=== PATIENT | female | born 1960 | race American Indian/Alaskan Native ===

== ENCOUNTER 2017-02-01 17:36 | Inpatient (IN) | payer OTHER ==
[~2017-02-01] VITALS: Ht 157.5 cm; Wt 60.7 kg
[~2017-02-01 17:36] MED LIST: ASPI81TA52 PO; BECL7.3A7 INH; FEXO-124 PO; FURO-149 PO; HYDR20OI TP; IPRA3AMP IH; KEN0.1O TP; MAGN500C16 PO; METO25TA6 PO; PANT40TA4 PO; PAT0.1OS OP; POTA10TA19 PO; TEMA15CA5 PO; WOOL454C TP
[2017-02-01] MEDS ORDERED: normal saline 1000ML IV soln IVB ONE ×2 (18:00→20:45)
[2017-02-01 18:01] LABS: BASOPHILS # (AUTO) 0.1 X10'3 (0-0.2); BASOPHILS % (AUTO) 0.6 % (0-1); EOSINOPHILS % (AUTO) 0.1 % (0-6); HEMOGLOBIN 12.8 g/dl (12.0-16.0); LYMPHOCYTES # (AUTO) 1.5 X10'3 (1.1-4.8); LYMPHOCYTES % (AUTO) 11.5 % (21-51); MEAN CORPUSCULAR HEMOGLOBIN 31.5 PG (27.0-31.0); MEAN CORPUSCULAR HGB CONC 33.7 % (33.0-36.5); MEAN CORPUSCULAR VOLUME 93.4 FL (78-98); MEAN PLATELET VOLUME 8.4 FL (7.4-10.4); MONOCYTES # (AUTO) 1.6 X10'3 (0-0.9); MONOCYTES % (AUTO) 12.4 % (2-12); NEUTROPHILS # (AUTO) 9.6 X10'3 (1.8-7.7); NEUTROPHILS % (AUTO) 75.4 % (42-75); PLATELET COUNT 173 X10'3 (140-440); RED BLOOD COUNT 4.07 X10'6 (4.20-5.60); RED CELL DISTRIBUTION WIDTH 13.7 % (11.5-14.5); WHITE BLOOD COUNT 12.7 X10'3 (4.5-11.0)
[2017-02-01 18:15] LABS: INR 1.4 INR; PARTIAL THROMBOPLASTIN TIME 27 SECONDS (22-32); PROTHROMBIN TIME 14.8 SECONDS (9.0-12.0)
[2017-02-01 18:30] LABS: ALANINE AMINOTRANSFERASE 35 U/L (12-78); ALBUMIN 2.8 G/DL (3.4-5.0); ALBUMIN/GLOBULIN RATIO 0.6 (1.1-1.5); ALKALINE PHOSPHATASE 140 IU/L (46-116); ANION GAP 17 (8-16); ASPARTATE AMINO TRANSFERASE 79 U/L (10-37); BILIRUBIN,TOTAL 4.8 MG/DL (0.1-1.0); BLOOD UREA NITROGEN 14 MG/DL (7-18); CALCIUM 7.8 MG/DL (8.5-10.1); CHLORIDE 85 MMOL/L (99-107); CREATININE 1.76 MG/DL (0.40-0.90); GLUCOSE 265 MG/DL (70-104); PHOSPHORUS 1.8 MG/DL (2.3-4.5); SODIUM 129 MMOL/L (135-145); TOTAL CARBON DIOXIDE 27.1 MMOL/L (24-32); TOTAL PROTEIN 7.7 G/DL (6.4-8.2); eGFR 30 ML/MIN
[2017-02-01 18:36] LABS: ETHANOL < 0.010 GM/DL (0.0-0.010); MAGNESIUM 0.9 MG/DL (1.5-2.4); POTASSIUM 1.9 MMOL/L (3.5-5.1)
[2017-02-01] MEDS ORDERED: potassium Cl 20 mEq SR tablet PO ONE (18:40)
[2017-02-01] MEDS ORDERED: magnesium 4gm in 100ml NS 100 ML IV ONE (18:40)
[2017-02-01] MEDS ORDERED: potassium phosphate inj 30 MMOL in normal saline 500ml IV soln 490 ML IV ONE (18:45)
[2017-02-01] MEDS ORDERED: potassium Cl oral solution 20 MEQ/15 ML PO ONE (19:20)
[2017-02-01] MEDS: potassium 10mEq/100ml NS w/LIDOcaine (10mg/bag) IV SCH ×2 (19:48→21:45)
[2017-02-01 20:51] LABS: CLARITY,URINE Cloudy (Clear); COLOR,URINE Dark Yellow (Yellow); GLUCOSE, URINE Negative (Neg); KETONES,URINE Negative (Neg); LEUKOCYTE ESTERASE ,URINE Moderate (Neg); NITRITES, URINE Positive (Neg); OCCULT BLOOD,URINE Negative (Neg); PH,URINE 5.5 (4.8-8.0); PROTEIN,URINE Negative (Neg)
[2017-02-01] MEDS ORDERED: POTA10TA19 PO (20:56)
[2017-02-01 20:58] LABS: UA COLLECTION TYPE CLN CATCH MIDSTREAM
[2017-02-01 21:04] LABS: BACTERIA,URINE 4+ /HPF (Neg); RBC,URINE NONE SEEN /HPF (0-2); SQUAMOUS EPITHELIAL CELL,UR FEW /LPF (FEW)
[2017-02-01 21:08] LABS: URINE AMPHETAMINE SCREEN NEGATIVE (Neg); URINE BARBITUATE SCREEN NEGATIVE (Neg); URINE BENZODIAZEPINES SCREEN POSITIVE (Neg); URINE CANNABINOID SCREEN NEGATIVE (Neg); URINE COCAINE SCREEN NEGATIVE (Neg); URINE METHADONE SCREEN NEGATIVE (Neg); URINE OPIATE SCREEN NEGATIVE (Neg); URINE PHENCYCLIDINE SCREEN NEGATIVE (Neg)
[2017-02-01] MEDS ORDERED: mag hydrox/Alum hydrox/simeth 30ml oral suspension PO PRN (22:55)
[2017-02-01] MEDS ORDERED: acetaminophen 325mg tablet PO PRN ×2 (22:55)
[2017-02-01] MEDS ORDERED: magnesium hydroxide 30ml (MOM) UD suspension PO PRN (22:55)
[2017-02-01] MEDS ORDERED: ondansetron/PF 4mg/2ml inj IV PRN (22:55)
[2017-02-01] MEDS ORDERED: potassium Cl 40MEQ/NS 500ml 500 ML IV PRN ×2 (23:05)
[2017-02-01] MEDS ORDERED: potassium Cl 20 mEq SR tablet PO PRN ×2 (23:05)
[2017-02-02 04:34] LABS: HEMOGLOBIN A1C 5.7 % (4.5-6.2)
[2017-02-02 07:13] LABS: BASOPHILS # (AUTO) 0.1 X10'3 (0-0.2); EOSINOPHILS # (AUTO) 0.1 X10'3 (0-0.9); EOSINOPHILS % (AUTO) 0.6 % (0-6); HEMATOCRIT 32.6 % (35.0-45.0); HEMOGLOBIN 10.9 g/dl (12.0-16.0); LYMPHOCYTES # (AUTO) 1.4 X10'3 (1.1-4.8); LYMPHOCYTES % (AUTO) 12.9 % (21-51); MEAN CORPUSCULAR HEMOGLOBIN 31.4 PG (27.0-31.0); MEAN CORPUSCULAR HGB CONC 33.5 % (33.0-36.5); MEAN CORPUSCULAR VOLUME 93.7 FL (78-98); MONOCYTES # (AUTO) 1.7 X10'3 (0-0.9); MONOCYTES % (AUTO) 15.7 % (2-12); NEUTROPHILS # (AUTO) 7.5 X10'3 (1.8-7.7); NEUTROPHILS % (AUTO) 69.8 % (42-75); PLATELET COUNT 148 X10'3 (140-440); RED BLOOD COUNT 3.49 X10'6 (4.20-5.60); RED CELL DISTRIBUTION WIDTH 14.1 % (11.5-14.5); WHITE BLOOD COUNT 10.7 X10'3 (4.5-11.0)
[2017-02-02] MEDS ORDERED: potassium 10mEq/100ml NS w/LIDOcaine (10mg/bag) IV ONE (07:15)
[2017-02-02 07:29] LABS: ALBUMIN 2.2 G/DL (3.4-5.0); ANION GAP 11 (8-16); BLOOD UREA NITROGEN 8 MG/DL (7-18); BUN/CREATININE RATIO 8.3 (6.6-38.0); CALCIUM 7.1 MG/DL (8.5-10.1); CHLORIDE 97 MMOL/L (99-107); CREATININE 0.96 MG/DL (0.40-0.90); GLUCOSE 144 MG/DL (70-104); MAGNESIUM 1.7 MG/DL (1.5-2.4); SODIUM 134 MMOL/L (135-145); TOTAL CARBON DIOXIDE 25.6 MMOL/L (24-32); eGFR 60 ML/MIN
[2017-02-02 07:36] LABS: POTASSIUM 2.3 MMOL/L (3.5-5.1)
[2017-02-02] MEDS ORDERED: AMOX-580 PO (07:51)
[2017-02-02] MEDS ORDERED: METO-384 PO (07:51)
[2017-02-02] MEDS: pantoprazole 40mg Tablet.DR PO SCH (07:53)
[2017-02-02] MEDS: aspirin 81mg tablet.DR PO SCH (07:53)
[2017-02-02] MEDS: metoprolol tartrate 25mg tablet PO SCH ×2 (07:53→20:09)
[2017-02-02] MEDS ORDERED: METO-395 PO (07:56)
[2017-02-02] MEDS ORDERED: metoprolol tartrate 25mg tablet PO SCH (08:00)
[2017-02-02] MEDS ORDERED: furosemide 40mg tablet PO SCH (08:00)
[2017-02-02] MEDS ORDERED: potassium Cl oral solution 20 MEQ/15 ML PO PRN (10:28)
[2017-02-02] MEDS: normal saline 1000ml 1,000 ML IV SCH ×2 (10:44→20:00)
[2017-02-02] MEDS: potassium Cl oral solution 20 MEQ/15 ML PO PRN ×3 (11:18→20:09)
[2017-02-02] MEDS ORDERED: CefTRIAXone 1 gm/50ml D5W ADV 50 ML IV ONE (11:25)
[2017-02-02] MEDS ORDERED: cefTRIAXone 1g/NS 100ml IVPB 100 ML IV ONE (11:31)
[2017-02-02] MEDS: potassium Cl 20mEq in NS 1,000 ML IV SCH ×3 (11:50→22:36)
[2017-02-02 12:08] LABS: POTASSIUM 2.9 MMOL/L (3.5-5.1)
[2017-02-02 12:15] LABS: MAGNESIUM 1.5 MG/DL (1.5-2.4)
[2017-02-02] MEDS ORDERED: magnesium oxide 400mg tablet PO ONE (12:40)
[2017-02-02 13:40] VITALS: BP 117/70
[2017-02-02] MEDS: ibuprofen 200mg tablet PO PRN (14:01)
[2017-02-02 15:00] VITALS: BP 97/66
[2017-02-02] MEDS: metroNIDAZOLE-Flagyl 500mg/NS 100 ML IV SCH ×2 (16:32→23:52)
[2017-02-02 19:00] VITALS: BP 91/63
[2017-02-02] MEDS ORDERED: magnesium 4gm in 100ml NS 100 ML IV PRN (19:50)
[2017-02-02] MEDS ORDERED: magnesium 2GM in 50ml NS 50 ML IV PRN (19:50)
[2017-02-02] MEDS: magnesium Cl slow-release 64mg tablet PO PRN (20:09)
[2017-02-02 23:00] VITALS: BP 103/67
[2017-02-03 00:24] LABS: MAGNESIUM 1.3 MG/DL (1.5-2.4); POTASSIUM 3.7 MMOL/L (3.5-5.1)
[2017-02-03 03:00] VITALS: BP 108/69
[2017-02-03 06:44] LABS: ALANINE AMINOTRANSFERASE 32 U/L (12-78); ALBUMIN 1.9 G/DL (3.4-5.0); ALBUMIN/GLOBULIN RATIO 0.5 (1.1-1.5); ALKALINE PHOSPHATASE 119 IU/L (46-116); ANION GAP 11 (8-16); ASPARTATE AMINO TRANSFERASE 68 U/L (10-37); BILIRUBIN,TOTAL 2.7 MG/DL (0.1-1.0); BLOOD UREA NITROGEN 9 MG/DL (7-18); BUN/CREATININE RATIO 9.3 (6.6-38.0); CALCIUM 7.4 MG/DL (8.5-10.1); CHLORIDE 105 MMOL/L (99-107); CREATININE 0.97 MG/DL (0.40-0.90); GLUCOSE 134 MG/DL (70-104); MAGNESIUM 1.2 MG/DL (1.5-2.4); POTASSIUM 3.4 MMOL/L (3.5-5.1); SODIUM 138 MMOL/L (135-145); TOTAL CARBON DIOXIDE 21.9 MMOL/L (24-32); TOTAL PROTEIN 5.5 G/DL (6.4-8.2); eGFR 59 ML/MIN
[2017-02-03 07:00] VITALS: BP 92/62
[2017-02-03] MEDS: metroNIDAZOLE-Flagyl 500mg/NS 100 ML IV SCH ×2 (07:29→16:07)
[2017-02-03] MEDS: aspirin 81mg tablet.DR PO SCH (07:30)
[2017-02-03] MEDS: potassium Cl 20mEq in NS 1,000 ML IV SCH ×2 (07:30→18:36)
[2017-02-03] MEDS: pantoprazole 40mg Tablet.DR PO SCH (07:30)
[2017-02-03] MEDS ORDERED: cefTRIAXone 1g/NS 100ml IVPB 100 ML IV SCH (08:00)
[2017-02-03] MEDS: metoprolol tartrate 25mg tablet PO SCH ×2 (08:00→20:05)
[2017-02-03 11:00] VITALS: BP 92/56
[2017-02-03] MEDS: ibuprofen 200mg tablet PO PRN ×3 (11:00→21:18)
[2017-02-03 14:39] LABS: MAGNESIUM 1.6 MG/DL (1.5-2.4)
[2017-02-03 15:00] VITALS: BP 105/59
[2017-02-03] MEDS ORDERED: naphazoline/pheniramine eye 1 DROP BOTTLE EACHEYE PRN (18:05)
[2017-02-03 19:00] VITALS: BP 114/62
[2017-02-03] MEDS ORDERED: BECLOMETHASONE DIPROPIONATE INH SCH (20:00)
[2017-02-03] MEDS ORDERED: OLOPATADINE HCL OP SCH (20:00)
[2017-02-03] MEDS: temazepam 15mg capsule PO SCH ×2 (20:05→20:09)
[2017-02-03] MEDS: potassium Cl oral solution 20 MEQ/15 ML PO SCH (20:06)
[2017-02-03] MEDS ORDERED: non-formulary drug (Potassium Chloride (Klor-Con) 1 TAB) PO SCH (21:00)
[2017-02-03 22:00] VITALS: BP 95/61
[2017-02-04] MEDS: metroNIDAZOLE-Flagyl 500mg/NS 100 ML IV SCH ×3 (00:13→16:51)
[2017-02-04 02:00] VITALS: BP 95/55
[2017-02-04] MEDS: potassium Cl 20mEq in NS 1,000 ML IV SCH ×3 (03:50→21:30)
[2017-02-04] MEDS: ibuprofen 200mg tablet PO PRN ×2 (04:00→12:07)
[2017-02-04 06:10] LABS: MAGNESIUM 1.3 MG/DL (1.5-2.4)
[2017-02-04 06:35] VITALS: BP 91/57
[2017-02-04] MEDS: metoprolol tartrate 25mg tablet PO SCH ×2 (07:21→20:40)
[2017-02-04] MEDS: pantoprazole 40mg Tablet.DR PO SCH (07:36)
[2017-02-04] MEDS: magnesium Cl slow-release 64mg tablet PO PRN ×2 (07:36→23:05)
[2017-02-04] MEDS: aspirin 81mg tablet.DR PO SCH (07:36)
[2017-02-04] MEDS: magnesium oxide 400mg tablet PO SCH (07:36)
[2017-02-04] MEDS: CefTRIAXone 1 gm/50ml D5W ADV 50 ML IV SCH (07:38)
[2017-02-04] MEDS: potassium Cl oral solution 20 MEQ/15 ML PO SCH ×3 (07:39→20:37)
[2017-02-04] MEDS ORDERED: MAGNESIUM OXIDE 500 MG PO SCH (08:00)
[2017-02-04 08:38] LABS: ALANINE AMINOTRANSFERASE 25 U/L (12-78); ALBUMIN 1.8 G/DL (3.4-5.0); ALBUMIN/GLOBULIN RATIO 0.5 (1.1-1.5); ALKALINE PHOSPHATASE 106 IU/L (46-116); ANION GAP 11 (8-16); ASPARTATE AMINO TRANSFERASE 63 U/L (10-37); BILIRUBIN,TOTAL 2.3 MG/DL (0.1-1.0); BLOOD UREA NITROGEN 10 MG/DL (7-18); BUN/CREATININE RATIO 11.8 (6.6-38.0); CHLORIDE 106 MMOL/L (99-107); CREATININE 0.85 MG/DL (0.40-0.90); GLUCOSE 130 MG/DL (70-104); POTASSIUM 4.3 MMOL/L (3.5-5.1); SODIUM 134 MMOL/L (135-145); TOTAL CARBON DIOXIDE 17.3 MMOL/L (24-32); TOTAL PROTEIN 5.1 G/DL (6.4-8.2); eGFR 69 ML/MIN
[2017-02-04 08:39] LABS: CALCIUM 7.5 MG/DL (8.5-10.1)
[2017-02-04 11:00] VITALS: BP 106/75
[2017-02-04 15:00] VITALS: BP 130/76
[2017-02-04 18:00] VITALS: BP 124/71
[2017-02-04] MEDS: lactobacillus rhamnosus 10,000 MMU CELLS/CAPSULE PO SCH (18:08)
[2017-02-04] MEDS: HYDROcodone/acetaminophen 5mg/325mg tablet PO PRN (19:32)
[2017-02-04] MEDS: temazepam 15mg capsule PO SCH (20:40)
[2017-02-04 22:00] VITALS: BP 97/61
[2017-02-05] MEDS: metroNIDAZOLE-Flagyl 500mg/NS 100 ML IV SCH ×2 (01:09→09:28)
[2017-02-05] MEDS: HYDROcodone/acetaminophen 5mg/325mg tablet PO PRN ×2 (01:26→20:32)
[2017-02-05 02:00] VITALS: BP 94/61
[2017-02-05 06:00] VITALS: BP 100/65
[2017-02-05] MEDS: metoprolol tartrate 25mg tablet PO SCH ×2 (08:00→20:30)
[2017-02-05] MEDS: lactobacillus rhamnosus 10,000 MMU CELLS/CAPSULE PO SCH ×2 (09:27→18:00)
[2017-02-05] MEDS: aspirin 81mg tablet.DR PO SCH (09:27)
[2017-02-05] MEDS: magnesium oxide 400mg tablet PO SCH (09:27)
[2017-02-05] MEDS: pantoprazole 40mg Tablet.DR PO SCH (09:27)
[2017-02-05] MEDS: potassium Cl oral solution 20 MEQ/15 ML PO SCH ×2 (09:27→13:00)
[2017-02-05] MEDS: CefTRIAXone 1 gm/50ml D5W ADV 50 ML IV SCH (09:28)
[2017-02-05] MEDS: potassium Cl 20mEq in NS 1,000 ML IV SCH (09:50)
[2017-02-05 11:00] VITALS: BP 115/71
[2017-02-05] MEDS: fluticasone furoate 100MCG/puff inhaler IH SCH (12:14)
[2017-02-05 14:54] LABS: HEMATOCRIT 33.4 % (35.0-45.0); MEAN CORPUSCULAR HEMOGLOBIN 31.6 PG (27.0-31.0); MEAN CORPUSCULAR HGB CONC 32.9 % (33.0-36.5); MEAN PLATELET VOLUME 7.7 FL (7.4-10.4); PLATELET COUNT 191 X10'3 (140-440); RED BLOOD COUNT 3.48 X10'6 (4.20-5.60); RED CELL DISTRIBUTION WIDTH 15.2 % (11.5-14.5); WHITE BLOOD COUNT 6.4 X10'3 (4.5-11.0)
[2017-02-05 15:00] VITALS: BP 141/78
[2017-02-05] MEDS ORDERED: metroNIDAZOLE 500mg tablet PO ONE (17:55)
[2017-02-05 18:00] VITALS: BP 128/73
[2017-02-05] MEDS: normal saline 1000ml 1,000 ML IV SCH (18:00)
[2017-02-05] MEDS: magnesium Cl slow-release 64mg tablet PO SCH (20:30)
[2017-02-05] MEDS: temazepam 15mg capsule PO SCH (21:00)
[2017-02-05 22:00] VITALS: BP 121/73
[2017-02-05] MEDS ORDERED: fluconazole 150mg tablet PO ONE (22:55)
[2017-02-05] MEDS: metroNIDAZOLE 500mg tablet PO SCH (23:55)
[2017-02-05] MEDS: nystatin 500,000 unit/5ML UD oral suspension PO SCH (23:55)
[2017-02-06 02:00] VITALS: BP 106/71
[2017-02-06] MEDS: HYDROcodone/acetaminophen 5mg/325mg tablet PO PRN ×2 (02:54→19:03)
[2017-02-06] MEDS: normal saline 1000ml 1,000 ML IV SCH ×2 (03:30→13:01)
[2017-02-06 05:58] LABS: HEMATOCRIT 30.4 % (35.0-45.0); HEMOGLOBIN 10.1 g/dl (12.0-16.0); MEAN CORPUSCULAR HEMOGLOBIN 31.8 PG (27.0-31.0); MEAN CORPUSCULAR HGB CONC 33.4 % (33.0-36.5); MEAN CORPUSCULAR VOLUME 95.3 FL (78-98); MEAN PLATELET VOLUME 7.7 FL (7.4-10.4); PLATELET COUNT 203 X10'3 (140-440); RED BLOOD COUNT 3.19 X10'6 (4.20-5.60); RED CELL DISTRIBUTION WIDTH 15.2 % (11.5-14.5); WHITE BLOOD COUNT 8.4 X10'3 (4.5-11.0)
[2017-02-06 06:00] VITALS: BP 106/71
[2017-02-06 06:55] LABS: ANISOCYTOSIS 1+; PLATELET ESTIMATE NORMAL; TOTAL CELLS COUNTED 100
[2017-02-06] MEDS: nystatin 500,000 unit/5ML UD oral suspension PO SCH ×3 (07:44→20:08)
[2017-02-06] MEDS: lactobacillus rhamnosus 10,000 MMU CELLS/CAPSULE PO SCH ×2 (07:44→16:54)
[2017-02-06] MEDS: metroNIDAZOLE 500mg tablet PO SCH ×2 (07:44→16:54)
[2017-02-06] MEDS: aspirin 81mg tablet.DR PO SCH (07:45)
[2017-02-06] MEDS: magnesium Cl slow-release 64mg tablet PO SCH ×2 (07:45→20:08)
[2017-02-06] MEDS: CefTRIAXone 1 gm/50ml D5W ADV 50 ML IV SCH (07:45)
[2017-02-06] MEDS: pantoprazole 40mg Tablet.DR PO SCH (07:45)
[2017-02-06] MEDS: metoprolol tartrate 25mg tablet PO SCH ×2 (07:48→20:08)
[2017-02-06] MEDS: fluticasone furoate 100MCG/puff inhaler IH SCH (08:57)
[2017-02-06 09:20] LABS: ALBUMIN 1.9 G/DL (3.4-5.0); ANION GAP 9 (8-16); BLOOD UREA NITROGEN 8 MG/DL (7-18); BUN/CREATININE RATIO 9.6 (6.6-38.0); CHLORIDE 106 MMOL/L (99-107); CREATININE 0.83 MG/DL (0.40-0.90); GLUCOSE 129 MG/DL (70-104); POTASSIUM 5.3 MMOL/L (3.5-5.1); SODIUM 132 MMOL/L (135-145); TOTAL CARBON DIOXIDE 16.6 MMOL/L (24-32); eGFR 71 ML/MIN
[2017-02-06] MEDS ORDERED: magnesium 2GM in 50ml NS 50 ML IV ONE (10:20)
[2017-02-06 11:00] VITALS: BP 129/86
[2017-02-06] MEDS: nystatin 15 GM powder TP SCH ×2 (13:01→20:09)
[2017-02-06 15:00] VITALS: BP 104/67
[2017-02-06 19:00] VITALS: BP 112/70
[2017-02-06] MEDS: temazepam 15mg capsule PO SCH (21:00)
[2017-02-06 23:00] VITALS: BP 106/62
[2017-02-07] VITALS (8 sets, daily range): BP systolic 82–112; BP diastolic 56–72
[2017-02-07] MEDS: normal saline 1000ml 1,000 ML IV SCH ×3 (00:23→13:09)
[2017-02-07] MEDS: metroNIDAZOLE 500mg tablet PO SCH ×3 (00:32→16:31)
[2017-02-07] MEDS: HYDROcodone/acetaminophen 5mg/325mg tablet PO PRN ×3 (02:31→20:12)
[2017-02-07 05:30] LABS: BASOPHILS % (AUTO) 0.5 % (0-1); EOSINOPHILS # (AUTO) 0.3 X10'3 (0-0.9); EOSINOPHILS % (AUTO) 3.2 % (0-6); HEMATOCRIT 29.8 % (35.0-45.0); HEMOGLOBIN 9.8 g/dl (12.0-16.0); LYMPHOCYTES # (AUTO) 1.6 X10'3 (1.1-4.8); LYMPHOCYTES % (AUTO) 19.6 % (21-51); MEAN CORPUSCULAR HEMOGLOBIN 31.6 PG (27.0-31.0); MEAN CORPUSCULAR HGB CONC 32.9 % (33.0-36.5); MEAN PLATELET VOLUME 7.5 FL (7.4-10.4); MONOCYTES # (AUTO) 1.6 X10'3 (0-0.9); MONOCYTES % (AUTO) 19.7 % (2-12); NEUTROPHILS # (AUTO) 4.8 X10'3 (1.8-7.7); PLATELET COUNT 205 X10'3 (140-440); RED BLOOD COUNT 3.11 X10'6 (4.20-5.60); RED CELL DISTRIBUTION WIDTH 15.3 % (11.5-14.5); WHITE BLOOD COUNT 8.4 X10'3 (4.5-11.0)
[2017-02-07 05:50] LABS: ALANINE AMINOTRANSFERASE 25 U/L (12-78); ALBUMIN 1.8 G/DL (3.4-5.0); ALBUMIN/GLOBULIN RATIO 0.5 (1.1-1.5); ALKALINE PHOSPHATASE 115 IU/L (46-116); ANION GAP 8 (8-16); ASPARTATE AMINO TRANSFERASE 53 U/L (10-37); BILIRUBIN,TOTAL 1.4 MG/DL (0.1-1.0); BLOOD UREA NITROGEN 7 MG/DL (7-18); BUN/CREATININE RATIO 9.3 (6.6-38.0); CALCIUM 7.9 MG/DL (8.5-10.1); CHLORIDE 107 MMOL/L (99-107); CREATININE 0.75 MG/DL (0.40-0.90); GLUCOSE 130 MG/DL (70-104); MAGNESIUM 1.7 MG/DL (1.5-2.4); POTASSIUM 5.3 MMOL/L (3.5-5.1); SODIUM 131 MMOL/L (135-145); TOTAL CARBON DIOXIDE 16.3 MMOL/L (24-32); TOTAL PROTEIN 5.1 G/DL (6.4-8.2); eGFR 80 ML/MIN
[2017-02-07] MEDS: nystatin 500,000 unit/5ML UD oral suspension PO SCH ×3 (07:19→20:13)
[2017-02-07] MEDS: nystatin 15 GM powder TP SCH ×3 (07:19→20:13)
[2017-02-07] MEDS: pantoprazole 40mg Tablet.DR PO SCH (07:19)
[2017-02-07] MEDS: aspirin 81mg tablet.DR PO SCH (07:20)
[2017-02-07] MEDS: metoprolol tartrate 25mg tablet PO SCH ×2 (07:20→20:12)
[2017-02-07] MEDS: lactobacillus rhamnosus 10,000 MMU CELLS/CAPSULE PO SCH ×2 (07:20→17:41)
[2017-02-07] MEDS: CefTRIAXone 1 gm/50ml D5W ADV 50 ML IV SCH (07:20)
[2017-02-07] MEDS: magnesium Cl slow-release 64mg tablet PO SCH ×2 (07:20→20:13)
[2017-02-07] MEDS: fluticasone furoate 100MCG/puff inhaler IH SCH (07:33)
[2017-02-07 17:44] LABS: PHOSPHORUS 3.4 MG/DL (2.3-4.5)
[2017-02-07] MEDS: temazepam 15mg capsule PO SCH (21:00)
[2017-02-08] VITALS (7 sets, daily range): BP systolic 92–119; BP diastolic 56–76
[2017-02-08] MEDS: metroNIDAZOLE 500mg tablet PO SCH ×4 (00:07→23:56)
[2017-02-08] MEDS: normal saline 1000ml 1,000 ML IV SCH ×2 (01:49→15:40)
[2017-02-08] MEDS: metoprolol tartrate 25mg tablet PO SCH ×2 (08:00→20:00)
[2017-02-08] MEDS: aspirin 81mg tablet.DR PO SCH (08:00)
[2017-02-08] MEDS: pantoprazole 40mg Tablet.DR PO SCH (08:00)
[2017-02-08] MEDS: CefTRIAXone 1 gm/50ml D5W ADV 50 ML IV SCH (08:00)
[2017-02-08] MEDS: magnesium Cl slow-release 64mg tablet PO SCH ×2 (08:00→20:39)
[2017-02-08] MEDS: lactobacillus rhamnosus 10,000 MMU CELLS/CAPSULE PO SCH ×2 (08:00→17:38)
[2017-02-08] MEDS: nystatin 500,000 unit/5ML UD oral suspension PO SCH ×3 (08:00→20:39)
[2017-02-08] MEDS: nystatin 15 GM powder TP SCH ×3 (08:01→20:39)
[2017-02-08] MEDS: fluticasone furoate 100MCG/puff inhaler IH SCH (08:21)
[2017-02-08] MEDS ORDERED: furosemide 40mg/4ml inj IV ONE (17:10)
[2017-02-08] MEDS: HYDROcodone/acetaminophen 5mg/325mg tablet PO PRN (17:38)
[2017-02-08] MEDS: temazepam 15mg capsule PO SCH (21:00)
[2017-02-09] MEDS: HYDROcodone/acetaminophen 5mg/325mg tablet PO PRN ×3 (00:08→20:15)
[2017-02-09 02:00] VITALS: BP 96/61
[2017-02-09 06:35] VITALS: BP 105/80
[2017-02-09] MEDS: metoprolol tartrate 25mg tablet PO SCH ×2 (08:23→20:02)
[2017-02-09] MEDS: lactobacillus rhamnosus 10,000 MMU CELLS/CAPSULE PO SCH ×2 (08:23→17:47)
[2017-02-09] MEDS: aspirin 81mg tablet.DR PO SCH (08:23)
[2017-02-09] MEDS: metroNIDAZOLE 500mg tablet PO SCH ×2 (08:24→17:47)
[2017-02-09] MEDS: pantoprazole 40mg Tablet.DR PO SCH (08:24)
[2017-02-09] MEDS: CefTRIAXone 1 gm/50ml D5W ADV 50 ML IV SCH (08:25)
[2017-02-09] MEDS: magnesium Cl slow-release 64mg tablet PO SCH ×2 (08:25→20:02)
[2017-02-09] MEDS: furosemide 40mg tablet PO SCH (08:25)
[2017-02-09] MEDS: spironolactone 50 MG tablet PO SCH (08:25)
[2017-02-09] MEDS: nystatin 15 GM powder TP SCH ×3 (08:26→21:54)
[2017-02-09] MEDS: nystatin 500,000 unit/5ML UD oral suspension PO SCH ×3 (08:47→20:15)
[2017-02-09] MEDS: fluticasone furoate 100MCG/puff inhaler IH SCH (09:00)
[2017-02-09 11:00] VITALS: BP 118/77
[2017-02-09 11:08] LABS: BASOPHILS # (AUTO) 0.1 X10'3 (0-0.2); BASOPHILS % (AUTO) 1.7 % (0-1); EOSINOPHILS # (AUTO) 0.2 X10'3 (0-0.9); EOSINOPHILS % (AUTO) 2.9 % (0-6); HEMATOCRIT 32.5 % (35.0-45.0); HEMOGLOBIN 10.6 g/dl (12.0-16.0); LYMPHOCYTES # (AUTO) 1.4 X10'3 (1.1-4.8); LYMPHOCYTES % (AUTO) 22.2 % (21-51); MEAN CORPUSCULAR HEMOGLOBIN 31.4 PG (27.0-31.0); MEAN CORPUSCULAR HGB CONC 32.5 % (33.0-36.5); MEAN CORPUSCULAR VOLUME 96.7 FL (78-98); MEAN PLATELET VOLUME 7.5 FL (7.4-10.4); MONOCYTES # (AUTO) 1.2 X10'3 (0-0.9); MONOCYTES % (AUTO) 19.8 % (2-12); NEUTROPHILS # (AUTO) 3.3 X10'3 (1.8-7.7); NEUTROPHILS % (AUTO) 53.4 % (42-75); PLATELET COUNT 231 X10'3 (140-440); RED BLOOD COUNT 3.36 X10'6 (4.20-5.60); RED CELL DISTRIBUTION WIDTH 15.5 % (11.5-14.5); WHITE BLOOD COUNT 6.2 X10'3 (4.5-11.0)
[2017-02-09 11:23] LABS: ALANINE AMINOTRANSFERASE 32 U/L (12-78); ALBUMIN 2.1 G/DL (3.4-5.0); ALBUMIN/GLOBULIN RATIO 0.6 (1.1-1.5); ALKALINE PHOSPHATASE 140 IU/L (46-116); ANION GAP 7 (8-16); ASPARTATE AMINO TRANSFERASE 69 U/L (10-37); BILIRUBIN,TOTAL 1.2 MG/DL (0.1-1.0); BLOOD UREA NITROGEN 7 MG/DL (7-18); BUN/CREATININE RATIO 7.6 (6.6-38.0); CHLORIDE 108 MMOL/L (99-107); CREATININE 0.92 MG/DL (0.40-0.90); GLUCOSE 170 MG/DL (70-104); MAGNESIUM 1.2 MG/DL (1.5-2.4); POTASSIUM 4.8 MMOL/L (3.5-5.1); SODIUM 135 MMOL/L (135-145); TOTAL CARBON DIOXIDE 19.8 MMOL/L (24-32); TOTAL PROTEIN 5.8 G/DL (6.4-8.2); eGFR 63 ML/MIN
[2017-02-09 11:33] LABS: TOTAL CELLS COUNTED 100
[2017-02-09 11:34] LABS: PLATELET ESTIMATE NORMAL
[2017-02-09 15:00] VITALS: BP 112/66
[2017-02-09 18:00] VITALS: BP 118/76
[2017-02-09] MEDS: temazepam 15mg capsule PO SCH (21:00)
[2017-02-09 22:00] VITALS: BP 95/57
[2017-02-10] MEDS: metroNIDAZOLE 500mg tablet PO SCH ×3 (00:37→15:26)
[2017-02-10 02:00] VITALS: BP 95/51
[2017-02-10] MEDS: HYDROcodone/acetaminophen 5mg/325mg tablet PO PRN ×3 (04:36→20:21)
[2017-02-10 05:30] VITALS: BP 99/68
[2017-02-10] MEDS: nystatin 500,000 unit/5ML UD oral suspension PO SCH ×3 (07:29→20:23)
[2017-02-10] MEDS: spironolactone 50 MG tablet PO SCH (07:29)
[2017-02-10] MEDS: furosemide 40mg tablet PO SCH (07:30)
[2017-02-10] MEDS: lactobacillus rhamnosus 10,000 MMU CELLS/CAPSULE PO SCH ×2 (07:30→16:53)
[2017-02-10] MEDS: metoprolol tartrate 25mg tablet PO SCH ×2 (07:30→20:21)
[2017-02-10] MEDS: pantoprazole 40mg Tablet.DR PO SCH (07:30)
[2017-02-10] MEDS: magnesium Cl slow-release 64mg tablet PO SCH ×2 (07:30→20:21)
[2017-02-10] MEDS: aspirin 81mg tablet.DR PO SCH (07:30)
[2017-02-10] MEDS: nystatin 15 GM powder TP SCH ×3 (07:31→20:22)
[2017-02-10] MEDS: CefTRIAXone 1 gm/50ml D5W ADV 50 ML IV SCH (07:31)
[2017-02-10] MEDS: fluticasone furoate 100MCG/puff inhaler IH SCH (07:59)
[2017-02-10 11:00] VITALS: BP 103/74
[2017-02-10 13:34] LABS: BASOPHILS # (AUTO) 0.1 X10'3 (0-0.2); EOSINOPHILS # (AUTO) 0.2 X10'3 (0-0.9); EOSINOPHILS % (AUTO) 2.6 % (0-6); HEMATOCRIT 32.5 % (35.0-45.0); HEMOGLOBIN 10.6 g/dl (12.0-16.0); LYMPHOCYTES # (AUTO) 1.3 X10'3 (1.1-4.8); LYMPHOCYTES % (AUTO) 21.1 % (21-51); MEAN CORPUSCULAR HEMOGLOBIN 31.5 PG (27.0-31.0); MEAN CORPUSCULAR HGB CONC 32.6 % (33.0-36.5); MEAN CORPUSCULAR VOLUME 96.5 FL (78-98); MEAN PLATELET VOLUME 7.1 FL (7.4-10.4); MONOCYTES # (AUTO) 1.2 X10'3 (0-0.9); MONOCYTES % (AUTO) 19.1 % (2-12); NEUTROPHILS # (AUTO) 3.4 X10'3 (1.8-7.7); NEUTROPHILS % (AUTO) 56.2 % (42-75); PLATELET COUNT 229 X10'3 (140-440); RED BLOOD COUNT 3.36 X10'6 (4.20-5.60); RED CELL DISTRIBUTION WIDTH 15.9 % (11.5-14.5); WHITE BLOOD COUNT 6.1 X10'3 (4.5-11.0)
[2017-02-10 13:51] LABS: ALANINE AMINOTRANSFERASE 26 U/L (12-78); ALBUMIN/GLOBULIN RATIO 0.5 (1.1-1.5); ALKALINE PHOSPHATASE 152 IU/L (46-116); ANION GAP 12 (8-16); ASPARTATE AMINO TRANSFERASE 64 U/L (10-37); BILIRUBIN,TOTAL 1.1 MG/DL (0.1-1.0); BLOOD UREA NITROGEN 7 MG/DL (7-18); BUN/CREATININE RATIO 7.8 (6.6-38.0); CALCIUM 7.7 MG/DL (8.5-10.1); CHLORIDE 109 MMOL/L (99-107); GLUCOSE 161 MG/DL (70-104); MAGNESIUM 1.1 MG/DL (1.5-2.4); POTASSIUM 3.3 MMOL/L (3.5-5.1); SODIUM 138 MMOL/L (135-145); TOTAL CARBON DIOXIDE 17.2 MMOL/L (24-32); TOTAL PROTEIN 5.7 G/DL (6.4-8.2); eGFR 65 ML/MIN
[2017-02-10 15:00] VITALS: BP 97/52
[2017-02-10] MEDS ORDERED: magnesium 4gm in 100ml NS 100 ML IV PRN (15:15)
[2017-02-10] MEDS ORDERED: potassium Cl 40MEQ/NS 500ml 500 ML IV PRN ×2 (15:15)
[2017-02-10] MEDS ORDERED: magnesium 2GM in 50ml NS 50 ML IV PRN (15:15)
[2017-02-10] MEDS ORDERED: potassium Cl 20 mEq SR tablet PO PRN ×2 (15:15)
[2017-02-10] MEDS ORDERED: KEN0.1O TP ×2 (15:37→15:39)
[2017-02-10 18:00] VITALS: BP 107/67
[2017-02-10] MEDS: triamcinolone acet 0.1% cream 15gm TP SCH (20:21)
[2017-02-10] MEDS: temazepam 15mg capsule PO SCH (20:22)
[2017-02-10 22:00] VITALS: BP 87/53
[2017-02-11] MEDS: metroNIDAZOLE 500mg tablet PO SCH ×2 (00:40→08:19)
[2017-02-11 02:00] VITALS: BP 101/61
[2017-02-11] MEDS: HYDROcodone/acetaminophen 5mg/325mg tablet PO PRN ×3 (02:44→19:13)
[2017-02-11 06:06] LABS: POTASSIUM 3.8 MMOL/L (3.5-5.1)
[2017-02-11 06:35] VITALS: BP 102/60
[2017-02-11] MEDS: pantoprazole 40mg Tablet.DR PO SCH (08:18)
[2017-02-11] MEDS: nystatin 500,000 unit/5ML UD oral suspension PO SCH ×3 (08:18→20:26)
[2017-02-11] MEDS: magnesium Cl slow-release 64mg tablet PO SCH ×2 (08:18→19:13)
[2017-02-11] MEDS: furosemide 40mg tablet PO SCH (08:18)
[2017-02-11] MEDS: lactobacillus rhamnosus 10,000 MMU CELLS/CAPSULE PO SCH ×2 (08:19→18:22)
[2017-02-11] MEDS: metoprolol tartrate 25mg tablet PO SCH ×2 (08:19→19:13)
[2017-02-11] MEDS: aspirin 81mg tablet.DR PO SCH (08:19)
[2017-02-11] MEDS: triamcinolone acet 0.1% cream 15gm TP SCH ×2 (08:20→20:26)
[2017-02-11] MEDS: spironolactone 50 MG tablet PO SCH (08:34)
[2017-02-11] MEDS: nystatin 15 GM powder TP SCH ×3 (08:36→20:27)
[2017-02-11] MEDS: fluticasone furoate 100MCG/puff inhaler IH SCH (08:37)
[2017-02-11 11:00] VITALS: BP 110/68
[2017-02-11 15:00] VITALS: BP 99/64
[2017-02-11] MEDS ORDERED: dexamethasone 4mg/ml inj IV SCH (17:10)
[2017-02-11 19:00] VITALS: BP 104/59
[2017-02-11] MEDS: temazepam 15mg capsule PO SCH (20:27)
[2017-02-11 23:00] VITALS: BP 97/59
[2017-02-12 03:00] VITALS: BP 90/57
[2017-02-12] MEDS: dexamethasone 4mg/ml inj IV SCH ×2 (03:08→12:22)
[2017-02-12] MEDS: HYDROcodone/acetaminophen 5mg/325mg tablet PO PRN ×2 (03:09→10:08)
[2017-02-12 06:00] VITALS: BP 108/71
[2017-02-12 06:01] LABS: ALBUMIN 1.8 G/DL (3.4-5.0); ANION GAP 8 (8-16); BLOOD UREA NITROGEN 8 MG/DL (7-18); BUN/CREATININE RATIO 9.1 (6.6-38.0); CALCIUM 7.8 MG/DL (8.5-10.1); CHLORIDE 109 MMOL/L (99-107); CREATININE 0.88 MG/DL (0.40-0.90); GLUCOSE 218 MG/DL (70-104); MAGNESIUM 1.4 MG/DL (1.5-2.4); POTASSIUM 4.6 MMOL/L (3.5-5.1); SODIUM 136 MMOL/L (135-145); TOTAL CARBON DIOXIDE 18.6 MMOL/L (24-32); eGFR 66 ML/MIN
[2017-02-12] MEDS ORDERED: furosemide 20MG tablet PO SCH (08:00)
[2017-02-12] MEDS: fluticasone furoate 100MCG/puff inhaler IH SCH (08:14)
[2017-02-12] MEDS: lactobacillus rhamnosus 10,000 MMU CELLS/CAPSULE PO SCH ×2 (09:47→17:32)
[2017-02-12] MEDS: nystatin 500,000 unit/5ML UD oral suspension PO SCH ×2 (09:48→13:29)
[2017-02-12] MEDS: aspirin 81mg tablet.DR PO SCH (09:48)
[2017-02-12] MEDS: metoprolol tartrate 25mg tablet PO SCH (09:48)
[2017-02-12] MEDS: magnesium Cl slow-release 64mg tablet PO SCH (09:48)
[2017-02-12] MEDS: triamcinolone acet 0.1% cream 15gm TP SCH (09:48)
[2017-02-12] MEDS: pantoprazole 40mg Tablet.DR PO SCH (09:48)
[2017-02-12] MEDS: nystatin 15 GM powder TP SCH ×2 (09:49→13:29)
[2017-02-12] MEDS: spironolactone 50 MG tablet PO SCH (09:53)
[2017-02-12 11:00] VITALS: BP 126/75
[2017-02-12 15:00] VITALS: BP 126/76
[2017-02-12] MEDS ORDERED: MAGN500C16 PO (17:49)
[2017-02-12] MEDS ORDERED: FURO20TA4 PO (17:49)
[2017-02-12] MEDS ORDERED: SPIR50TA3 PO (17:49)
[2017-02-12] MEDS ORDERED: DEC4T PO (17:49)
[2017-02-13] MEDS ORDERED: furosemide 20MG tablet PO SCH (08:00)
== END 2017-02-12 19:30 | disposition home or self-care (01) | DRG 871 ==
LOC: ER 17:36 → ED HOLD 22:54 → PCU 3S 02-02 13:12 → UNDODISIN 02-02 13:28 → PCU 3S 02-05 16:54
PROVIDERS: ADMIT Internal Medicine; ATTEND Internal Medicine
PROC: 0W9G3ZZ Drainage of Peritoneal Cavity, Percutaneous Approach (ICD-10-PCS; principal; 2017-02-07)
DX: A41.9 Sepsis, unspecified organism (principal); G93.41 Metabolic encephalopathy; R18.8 Other ascites; E87.1 Hypo-osmolality and hyponatremia; I11.0 Hypertensive heart disease with heart failure; E83.42 Hypomagnesemia; I50.32 Chronic diastolic (congestive) heart failure; N39.0 Urinary tract infection, site not specified; E03.9 Hypothyroidism, unspecified; B19.20 Unspecified viral hepatitis C without hepatic coma; N83.202 Unspecified ovarian cyst, left side; E11.9 Type 2 diabetes mellitus without complications; E86.0 Dehydration; N93.9 Abnormal uterine and vaginal bleeding, unspecified; K74.60 Unspecified cirrhosis of liver; E87.6 Hypokalemia; G47.33 Obstructive sleep apnea (adult) (pediatric); J45.909 Unspecified asthma, uncomplicated; F17.210 Nicotine dependence, cigarettes, uncomplicated; X58.XXXD Exposure to other specified factors, subsequent encounter; T78.40XD Allergy, unspecified, subsequent encounter; Z90.710 Acquired absence of both cervix and uterus; Z88.2 Allergy status to sulfonamides; Z88.8 Allergy status to other drugs, medicaments and biological substances; Z79.82 Long term (current) use of aspirin; Z79.899 Other long term (current) drug therapy; Z82.49 Family history of ischemic heart disease and other diseases of the circulatory system
CPT/HCPCS: 36415; 49083; 70450; 70544; 70551; 76830; 76856; 80048; 80053; 80305; 80320; 81001; 82140; 82948; 83036; 83735; 84100; 84132; 84443; 84484; 85025; 85027; 85610; 85651; 85730; 87070; 87077; 87088; 87186; 93005; 94640; 94760; 96361; 96365; 96366; 96367; 97116; 97161; 97530; 99285; A4649; A6212; A6213; A6449; J0696; J1100; J1940; J3475; J3480; J3490; J7030

== ENCOUNTER 2017-02-16 12:35 | Outpatient (CLI) | payer OTHER ==
[~2017-02-16 12:35] MED LIST changes: +DEC4T PO; -FURO-149 PO; +FURO20TA4 PO; -HYDR20OI TP; +METO-384 PO; +METO-395 PO; -METO25TA6 PO; +SPIR50TA3 PO
[2017-02-16 13:09] LABS: ANION GAP 6 (8-16); CHLORIDE 106 MMOL/L (99-107); GLUCOSE 158 MG/DL (70-104); POTASSIUM 3.9 MMOL/L (3.5-5.1); SODIUM 139 MMOL/L (135-145); TOTAL CARBON DIOXIDE 26.7 MMOL/L (24-32)
[2017-02-16 13:10] LABS: ALBUMIN 2.5 G/DL (3.4-5.0); BLOOD UREA NITROGEN 19 MG/DL (7-18); BUN/CREATININE RATIO 17.6 (6.6-38.0); CALCIUM 8.6 MG/DL (8.5-10.1); CREATININE 1.08 MG/DL (0.40-0.90); eGFR 52 ML/MIN
[2017-02-16 13:52] LABS: MAGNESIUM 1.5 MG/DL (1.5-2.4)
== END 2017-02-16 23:59 | disposition home or self-care (01) ==
LOC: LAB 12:35
PROVIDERS: ATTEND Internal Medicine
DX: E87.6 Hypokalemia (principal); E83.42 Hypomagnesemia; K74.60 Unspecified cirrhosis of liver; E87.1 Hypo-osmolality and hyponatremia; J44.9 Chronic obstructive pulmonary disease, unspecified; I10 Essential (primary) hypertension
CPT/HCPCS: 36415; 80048; 83735

== ENCOUNTER 2017-02-20 15:06 | Inpatient (IN) | payer OTHER ==
[~2017-02-20] VITALS: Ht 157.5 cm; Wt 75.9 kg
[2017-02-20 16:44] LABS: BASOPHILS # (AUTO) 0.1 X10'3 (0-0.2); BASOPHILS % (AUTO) 0.9 % (0-1); EOSINOPHILS # (AUTO) 0.2 X10'3 (0-0.9); EOSINOPHILS % (AUTO) 1.9 % (0-6); HEMATOCRIT 34.1 % (35.0-45.0); HEMOGLOBIN 11.3 g/dl (12.0-16.0); LYMPHOCYTES # (AUTO) 1.3 X10'3 (1.1-4.8); MEAN CORPUSCULAR HGB CONC 33.1 % (33.0-36.5); MEAN CORPUSCULAR VOLUME 96.6 FL (78-98); MEAN PLATELET VOLUME 8.1 FL (7.4-10.4); MONOCYTES # (AUTO) 1.6 X10'3 (0-0.9); MONOCYTES % (AUTO) 14.2 % (2-12); NEUTROPHILS # (AUTO) 7.9 X10'3 (1.8-7.7); PLATELET COUNT 173 X10'3 (140-440); RED BLOOD COUNT 3.53 X10'6 (4.20-5.60); RED CELL DISTRIBUTION WIDTH 17.7 % (11.5-14.5); WHITE BLOOD COUNT 11.2 X10'3 (4.5-11.0)
[2017-02-20 16:56] LABS: ALANINE AMINOTRANSFERASE 46 U/L (12-78); ALBUMIN 2.2 G/DL (3.4-5.0); ALBUMIN/GLOBULIN RATIO 0.6 (1.1-1.5); ALKALINE PHOSPHATASE 169 IU/L (46-116); ANION GAP 8 (8-16); ASPARTATE AMINO TRANSFERASE 70 U/L (10-37); BILIRUBIN,TOTAL 2.7 MG/DL (0.1-1.0); BLOOD UREA NITROGEN 12 MG/DL (7-18); BUN/CREATININE RATIO 12.5 (6.6-38.0); CALCIUM 7.9 MG/DL (8.5-10.1); CHLORIDE 99 MMOL/L (99-107); CREATININE 0.96 MG/DL (0.40-0.90); GLUCOSE 207 MG/DL (70-104); LIPASE 742 U/L (73-393); POTASSIUM 4.3 MMOL/L (3.5-5.1); SODIUM 132 MMOL/L (135-145); TOTAL CARBON DIOXIDE 25.2 MMOL/L (24-32); TOTAL PROTEIN 6.1 G/DL (6.4-8.2); eGFR 60 ML/MIN
[2017-02-20] MEDS ORDERED: vancomycin/NS 1 GM ADD-VANTAGE 250 ML IV ONE (17:40)
[2017-02-20 17:48] LABS: CLARITY,URINE CLEAR (Clear); COLOR,URINE YELLOW (Yellow); GLUCOSE, URINE NEGATIVE (Neg); KETONES,URINE NEGATIVE (Neg); LEUKOCYTE ESTERASE ,URINE NEGATIVE (Neg); NITRITES, URINE NEGATIVE (Neg); OCCULT BLOOD,URINE NEGATIVE (Neg); PROTEIN,URINE NEGATIVE (Neg); UROBILINOGEN,URINE 0.2 E.U/dL (0.2-1.0)
[2017-02-20 17:50] LABS: UA COLLECTION TYPE CLN CATCH MIDSTREAM
[2017-02-20 17:56] LABS: MAGNESIUM 1.2 MG/DL (1.5-2.4)
[2017-02-20] MEDS ORDERED: magnesium 2GM in 50ml NS 50 ML IV ONE (18:20)
[2017-02-20] MEDS ORDERED: POTA10TA19 PO ×3 (19:40)
[2017-02-20] MEDS ORDERED: SPIR50TA3 PO (19:40)
[2017-02-20] MEDS ORDERED: FURO-150 PO (19:40)
[2017-02-20] MEDS ORDERED: SPIR100T3 PO (19:40)
[2017-02-20] MEDS ORDERED: HYDROcodone/acetaminophen 5mg/325mg tablet PO ONE (20:55)
[2017-02-20] MEDS ORDERED: temazepam 15mg capsule PO PRN (21:00)
[2017-02-20] MEDS ORDERED: diphenhydrAMINE 25mg capsule PO PRN (21:15)
[2017-02-20] MEDS ORDERED: diphenhydrAMINE 50 mg/ml inj IV PRN (21:15)
[2017-02-20] MEDS ORDERED: acetaminophen 650mg rectal suppository RC PRN (21:15)
[2017-02-20] MEDS ORDERED: metoclopramide 5 mg/ml inj IV PRN (21:15)
[2017-02-20] MEDS ORDERED: magnesium hydroxide 30ml (MOM) UD suspension PO PRN (21:15)
[2017-02-20] MEDS ORDERED: HYDROmorphone 1 mg/ml syringe IV PRN ×2 (21:15)
[2017-02-20] MEDS ORDERED: HYDROcodone/acetaminophen 5mg/325mg tablet PO PRN (21:15)
[2017-02-20] MEDS ORDERED: ondansetron/PF 4mg/2ml inj IV PRN (21:15)
[2017-02-20] MEDS ORDERED: mag hydrox/Alum hydrox/simeth 30ml oral suspension PO PRN (21:15)
[2017-02-20] MEDS ORDERED: acetaminophen 325mg tablet PO PRN ×2 (21:15)
[2017-02-20] MEDS ORDERED: bisacodyl 10mg suppository rectal RC PRN (21:15)
[2017-02-20] MEDS: temazepam 15mg capsule PO SCH (21:26)
[2017-02-20 21:35] LABS: PHOSPHORUS 2.9 MG/DL (2.3-4.5)
[2017-02-20 22:25] VITALS: BP 125/76
[2017-02-20] MEDS: piperacillin-tazo 2.25gm/50ml 50 ML IV SCH (22:41)
[2017-02-21] MEDS: HYDROcodone/acetaminophen 10/325mg tab PO PRN ×3 (01:13→13:39)
[2017-02-21 05:48] LABS: BASOPHILS % (AUTO) 0.5 % (0-1); EOSINOPHILS # (AUTO) 0.4 X10'3 (0-0.9); EOSINOPHILS % (AUTO) 4.2 % (0-6); HEMATOCRIT 31.1 % (35.0-45.0); HEMOGLOBIN 10.1 g/dl (12.0-16.0); LYMPHOCYTES # (AUTO) 1.8 X10'3 (1.1-4.8); LYMPHOCYTES % (AUTO) 20.4 % (21-51); MEAN CORPUSCULAR HEMOGLOBIN 31.6 PG (27.0-31.0); MEAN CORPUSCULAR HGB CONC 32.5 % (33.0-36.5); MEAN CORPUSCULAR VOLUME 97.3 FL (78-98); MONOCYTES # (AUTO) 1.5 X10'3 (0-0.9); MONOCYTES % (AUTO) 16.7 % (2-12); NEUTROPHILS # (AUTO) 5.1 X10'3 (1.8-7.7); NEUTROPHILS % (AUTO) 58.2 % (42-75); PLATELET COUNT 123 X10'3 (140-440); RED CELL DISTRIBUTION WIDTH 17.9 % (11.5-14.5); WHITE BLOOD COUNT 8.8 X10'3 (4.5-11.0)
[2017-02-21 06:00] VITALS: BP 114/72
[2017-02-21 06:08] LABS: ALANINE AMINOTRANSFERASE 35 U/L (12-78); ALBUMIN/GLOBULIN RATIO 0.6 (1.1-1.5); ALKALINE PHOSPHATASE 141 IU/L (46-116); ANION GAP 5 (8-16); ASPARTATE AMINO TRANSFERASE 44 U/L (10-37); BILIRUBIN,TOTAL 2.8 MG/DL (0.1-1.0); BLOOD UREA NITROGEN 12 MG/DL (7-18); BUN/CREATININE RATIO 14.1 (6.6-38.0); CHLORIDE 102 MMOL/L (99-107); CREATININE 0.85 MG/DL (0.40-0.90); GLUCOSE 127 MG/DL (70-104); POTASSIUM 3.9 MMOL/L (3.5-5.1); SODIUM 135 MMOL/L (135-145); TOTAL CARBON DIOXIDE 27.6 MMOL/L (24-32); TOTAL PROTEIN 5.2 G/DL (6.4-8.2); eGFR 69 ML/MIN
[2017-02-21] MEDS: nicotine 21mg patch - 24 hr TD SCH (08:00)
[2017-02-21] MEDS: docusate sod 100mg capsule PO SCH ×2 (08:00→20:00)
[2017-02-21] MEDS ORDERED: METOPROLOL SUCCINATE 50 MG PO SCH (08:00)
[2017-02-21] MEDS: aspirin 81mg tablet.DR PO SCH (08:28)
[2017-02-21] MEDS: lactobacillus rhamnosus 10,000 MMU CELLS/CAPSULE PO SCH ×2 (08:28→16:51)
[2017-02-21] MEDS: metoprolol succinate 25mg (24-HOUR) SR. Tablet PO SCH (08:29)
[2017-02-21] MEDS: pantoprazole 40mg Tablet.DR PO SCH (08:29)
[2017-02-21] MEDS: piperacillin-tazo 2.25gm/50ml 50 ML IV SCH ×2 (08:31→16:51)
[2017-02-21] MEDS: vancomycin/NS 1 GM ADD-VANTAGE 250 ML IV SCH ×2 (08:31→19:48)
[2017-02-21] MEDS: furosemide 10 MG/1 ML 10ml inj IV SCH ×2 (08:31→20:00)
[2017-02-21] MEDS: heparin, porcine 5000 units/ml vial SQ SCH ×2 (08:32→19:47)
[2017-02-21] MEDS: tetrahydrozoline 0.05% 15ml ophthalmic drops EACHEYE SCH ×3 (08:51→19:48)
[2017-02-21 11:00] VITALS: BP 103/66
[2017-02-21] MEDS ORDERED: dextrose 50%-water 50ml dispensing syringe IV PRN ×2 (11:10)
[2017-02-21] MEDS ORDERED: MESSAGE TO PHARMACY PO ONE (11:10)
[2017-02-21] MEDS ORDERED: glucagon, human recombinant 1mg kit SUBCUT PRN (11:10)
[2017-02-21] MEDS ORDERED: insulin Lispro (HumaLOG) vial - multi-dose SQ SCH (11:10)
[2017-02-21] MEDS ORDERED: dextrose ORAL solution 15 GM/59 ML bottle PO PRN ×2 (11:10)
[2017-02-21] MEDS ORDERED: potassium Cl 20 mEq SR tablet PO PRN ×2 (11:20)
[2017-02-21] MEDS ORDERED: potassium Cl 40MEQ/NS 500ml 500 ML IV PRN ×2 (11:20)
[2017-02-21] MEDS ORDERED: magnesium 4gm in 100ml NS 100 ML IV PRN (11:20)
[2017-02-21 12:04] LABS: MAGNESIUM 1.7 MG/DL (1.5-2.4)
[2017-02-21] MEDS: diphenhydrAMINE 25mg capsule PO PRN ×2 (12:28→19:52)
[2017-02-21 18:42] VITALS: BP 104/49
[2017-02-21] MEDS: ipratropium/albuterol 3ml nebule IH SCH (19:52)
[2017-02-21 19:54] VITALS: BP 92/50
[2017-02-21] MEDS: triamcinolone acetonide 0.5% cream 15gm TP SCH (20:46)
[2017-02-21] MEDS: Insulin Detemir pen SQ SCH (21:00)
[2017-02-21] MEDS: temazepam 15mg capsule PO SCH (21:00)
[2017-02-21 22:13] VITALS: BP 103/60
[2017-02-22] MEDS: piperacillin-tazo 2.25gm/50ml 50 ML IV SCH ×3 (00:02→16:05)
[2017-02-22] MEDS: HYDROcodone/acetaminophen 10/325mg tab PO PRN ×3 (00:03→19:38)
[2017-02-22] MEDS: tetrahydrozoline 0.05% 15ml ophthalmic drops EACHEYE SCH ×4 (02:00→19:45)
[2017-02-22] MEDS: diphenhydrAMINE 25mg capsule PO PRN ×3 (03:26→19:39)
[2017-02-22 06:00] VITALS: BP 102/59
[2017-02-22 07:02] LABS: BASOPHILS # (AUTO) 0.1 X10'3 (0-0.2); BASOPHILS % (AUTO) 1.7 % (0-1); EOSINOPHILS # (AUTO) 0.5 X10'3 (0-0.9); EOSINOPHILS % (AUTO) 6.6 % (0-6); HEMATOCRIT 32.5 % (35.0-45.0); HEMOGLOBIN 10.7 g/dl (12.0-16.0); LYMPHOCYTES % (AUTO) 12.9 % (21-51); MEAN CORPUSCULAR HEMOGLOBIN 31.9 PG (27.0-31.0); MEAN CORPUSCULAR HGB CONC 32.8 % (33.0-36.5); MEAN CORPUSCULAR VOLUME 97.3 FL (78-98); MEAN PLATELET VOLUME 8.1 FL (7.4-10.4); MONOCYTES # (AUTO) 1.3 X10'3 (0-0.9); MONOCYTES % (AUTO) 15.8 % (2-12); PLATELET COUNT 133 X10'3 (140-440); RED BLOOD COUNT 3.34 X10'6 (4.20-5.60); RED CELL DISTRIBUTION WIDTH 17.7 % (11.5-14.5)
[2017-02-22 07:32] LABS: ALANINE AMINOTRANSFERASE 41 U/L (12-78); ALBUMIN 2.2 G/DL (3.4-5.0); ALBUMIN/GLOBULIN RATIO 0.6 (1.1-1.5); ALKALINE PHOSPHATASE 172 IU/L (46-116); ANION GAP 7 (8-16); ASPARTATE AMINO TRANSFERASE 56 U/L (10-37); BLOOD UREA NITROGEN 11 MG/DL (7-18); BUN/CREATININE RATIO 10.7 (6.6-38.0); CALCIUM 8.1 MG/DL (8.5-10.1); CHLORIDE 100 MMOL/L (99-107); CREATININE 1.03 MG/DL (0.40-0.90); GLUCOSE 109 MG/DL (70-104); MAGNESIUM 1.3 MG/DL (1.5-2.4); POTASSIUM 4.2 MMOL/L (3.5-5.1); SODIUM 134 MMOL/L (135-145); TOTAL CARBON DIOXIDE 26.6 MMOL/L (24-32); TOTAL PROTEIN 5.8 G/DL (6.4-8.2); eGFR 55 ML/MIN
[2017-02-22] MEDS: ipratropium/albuterol 3ml nebule IH SCH ×4 (07:34→19:47)
[2017-02-22] MEDS: fluticasone furoate 100MCG/puff inhaler IH SCH (07:39)
[2017-02-22] MEDS: vancomycin/NS 1 GM ADD-VANTAGE 250 ML IV SCH ×2 (07:48→19:40)
[2017-02-22] MEDS: aspirin 81mg tablet.DR PO SCH (07:49)
[2017-02-22] MEDS: magnesium Cl slow-release 64mg tablet PO PRN ×2 (07:49→14:08)
[2017-02-22] MEDS: lactobacillus rhamnosus 10,000 MMU CELLS/CAPSULE PO SCH ×2 (07:50→16:57)
[2017-02-22] MEDS: pantoprazole 40mg Tablet.DR PO SCH (07:50)
[2017-02-22] MEDS: loratadine 10mg tablet PO SCH (07:50)
[2017-02-22] MEDS: metoprolol succinate 25mg (24-HOUR) SR. Tablet PO SCH (07:52)
[2017-02-22] MEDS: docusate sod 100mg capsule PO SCH ×2 (07:52→19:39)
[2017-02-22] MEDS: heparin, porcine 5000 units/ml vial SQ SCH ×2 (07:56→19:44)
[2017-02-22] MEDS: nicotine 21mg patch - 24 hr TD SCH (07:57)
[2017-02-22] MEDS: triamcinolone acetonide 0.5% cream 15gm TP SCH (07:58)
[2017-02-22] MEDS ORDERED: spironolactone 25 MG tablet PO SCH (08:30)
[2017-02-22] MEDS: spironolactone 25 MG tablet PO SCH (08:39)
[2017-02-22] MEDS: furosemide 10 MG/1 ML 10ml inj IV SCH ×2 (08:41→19:45)
[2017-02-22] MEDS ORDERED: LORazepam 1 MG tablet PO PRN (09:30)
[2017-02-22 10:00] VITALS: BP 117/72
[2017-02-22 18:00] VITALS: BP 100/64
[2017-02-22] MEDS ORDERED: VANCOMYCIN LEVEL IV NR (19:30)
[2017-02-22] MEDS: Insulin Detemir pen SQ SCH (21:00)
[2017-02-22] MEDS: temazepam 15mg capsule PO SCH (21:00)
[2017-02-22 22:00] VITALS: BP 125/80
[2017-02-23] MEDS: piperacillin-tazo 2.25gm/50ml 50 ML IV SCH (00:10)
[2017-02-23] MEDS: diphenhydrAMINE 25mg capsule PO PRN ×3 (01:45→19:55)
[2017-02-23] MEDS: HYDROcodone/acetaminophen 10/325mg tab PO PRN ×3 (01:45→19:56)
[2017-02-23] MEDS: tetrahydrozoline 0.05% 15ml ophthalmic drops EACHEYE SCH ×4 (01:45→19:54)
[2017-02-23 06:00] VITALS: BP 91/64
[2017-02-23 06:45] LABS: BASOPHILS % (AUTO) 0.4 % (0-1); EOSINOPHILS # (AUTO) 0.4 X10'3 (0-0.9); EOSINOPHILS % (AUTO) 5.3 % (0-6); HEMATOCRIT 29.7 % (35.0-45.0); HEMOGLOBIN 9.7 g/dl (12.0-16.0); LYMPHOCYTES # (AUTO) 1.2 X10'3 (1.1-4.8); LYMPHOCYTES % (AUTO) 15.2 % (21-51); MEAN CORPUSCULAR HEMOGLOBIN 31.9 PG (27.0-31.0); MEAN CORPUSCULAR HGB CONC 32.8 % (33.0-36.5); MEAN CORPUSCULAR VOLUME 97.4 FL (78-98); MEAN PLATELET VOLUME 8.1 FL (7.4-10.4); MONOCYTES # (AUTO) 1.8 X10'3 (0-0.9); MONOCYTES % (AUTO) 21.6 % (2-12); NEUTROPHILS # (AUTO) 4.7 X10'3 (1.8-7.7); NEUTROPHILS % (AUTO) 57.5 % (42-75); PLATELET COUNT 110 X10'3 (140-440); RED BLOOD COUNT 3.05 X10'6 (4.20-5.60); RED CELL DISTRIBUTION WIDTH 18.1 % (11.5-14.5); WHITE BLOOD COUNT 8.1 X10'3 (4.5-11.0)
[2017-02-23 07:02] LABS: ALANINE AMINOTRANSFERASE 35 U/L (12-78); ALBUMIN 2.1 G/DL (3.4-5.0); ALBUMIN/GLOBULIN RATIO 0.6 (1.1-1.5); ALKALINE PHOSPHATASE 176 IU/L (46-116); ANION GAP 8 (8-16); ASPARTATE AMINO TRANSFERASE 47 U/L (10-37); BILIRUBIN,TOTAL 2.6 MG/DL (0.1-1.0); BLOOD UREA NITROGEN 11 MG/DL (7-18); BUN/CREATININE RATIO 10.2 (6.6-38.0); CALCIUM 7.9 MG/DL (8.5-10.1); CHLORIDE 98 MMOL/L (99-107); CREATININE 1.08 MG/DL (0.40-0.90); GLUCOSE 113 MG/DL (70-104); MAGNESIUM 1.1 MG/DL (1.5-2.4); POTASSIUM 3.3 MMOL/L (3.5-5.1); SODIUM 134 MMOL/L (135-145); TOTAL PROTEIN 5.6 G/DL (6.4-8.2); eGFR 52 ML/MIN
[2017-02-23] MEDS: pantoprazole 40mg Tablet.DR PO SCH (07:30)
[2017-02-23] MEDS: lactobacillus rhamnosus 10,000 MMU CELLS/CAPSULE PO SCH ×2 (07:30→17:25)
[2017-02-23] MEDS: nicotine 21mg patch - 24 hr TD SCH (08:00)
[2017-02-23] MEDS: docusate sod 100mg capsule PO SCH ×2 (08:00→19:52)
[2017-02-23] MEDS: fluticasone furoate 100MCG/puff inhaler IH SCH (08:07)
[2017-02-23] MEDS: ipratropium/albuterol 3ml nebule IH SCH ×4 (08:07→20:59)
[2017-02-23] MEDS: furosemide 10 MG/1 ML 10ml inj IV SCH ×2 (08:50→19:52)
[2017-02-23] MEDS: loratadine 10mg tablet PO SCH (08:53)
[2017-02-23] MEDS: vancomycin/NS 1 GM ADD-VANTAGE 250 ML IV SCH ×2 (08:53→19:51)
[2017-02-23] MEDS: metoprolol succinate 25mg (24-HOUR) SR. Tablet PO SCH (08:54)
[2017-02-23] MEDS: aspirin 81mg tablet.DR PO SCH (08:54)
[2017-02-23] MEDS: spironolactone 25 MG tablet PO SCH (08:55)
[2017-02-23] MEDS: heparin, porcine 5000 units/ml vial SQ SCH ×2 (08:56→19:53)
[2017-02-23] MEDS: magnesium Cl slow-release 64mg tablet PO PRN ×2 (09:09→13:41)
[2017-02-23] MEDS ORDERED: potassium Cl oral solution 20 MEQ/15 ML PO PRN (09:15)
[2017-02-23 10:00] VITALS: BP 116/76
[2017-02-23] MEDS: potassium Cl oral solution 20 MEQ/15 ML PO PRN ×3 (10:42→19:55)
[2017-02-23 19:00] VITALS: BP 101/62
[2017-02-23] MEDS: Insulin Detemir pen SQ SCH (21:00)
[2017-02-23] MEDS: temazepam 15mg capsule PO SCH (21:00)
[2017-02-23 23:00] VITALS: BP 105/58
[2017-02-24] MEDS: tetrahydrozoline 0.05% 15ml ophthalmic drops EACHEYE SCH ×4 (02:00→20:00)
[2017-02-24] MEDS: HYDROcodone/acetaminophen 10/325mg tab PO PRN ×3 (02:27→21:08)
[2017-02-24] MEDS: diphenhydrAMINE 25mg capsule PO PRN ×3 (02:27→21:08)
[2017-02-24 05:00] VITALS: BP 83/55
[2017-02-24 06:37] LABS: BASOPHILS % (AUTO) 0.5 % (0-1); EOSINOPHILS # (AUTO) 0.4 X10'3 (0-0.9); EOSINOPHILS % (AUTO) 5.1 % (0-6); HEMATOCRIT 31.5 % (35.0-45.0); HEMOGLOBIN 10.4 g/dl (12.0-16.0); LYMPHOCYTES # (AUTO) 1.3 X10'3 (1.1-4.8); LYMPHOCYTES % (AUTO) 14.4 % (21-51); MEAN CORPUSCULAR HEMOGLOBIN 32.2 PG (27.0-31.0); MEAN CORPUSCULAR VOLUME 97.4 FL (78-98); MEAN PLATELET VOLUME 8.1 FL (7.4-10.4); MONOCYTES # (AUTO) 1.7 X10'3 (0-0.9); MONOCYTES % (AUTO) 19.9 % (2-12); NEUTROPHILS # (AUTO) 5.2 X10'3 (1.8-7.7); NEUTROPHILS % (AUTO) 60.1 % (42-75); PLATELET COUNT 122 X10'3 (140-440); RED BLOOD COUNT 3.23 X10'6 (4.20-5.60); RED CELL DISTRIBUTION WIDTH 18.3 % (11.5-14.5); WHITE BLOOD COUNT 8.7 X10'3 (4.5-11.0)
[2017-02-24] MEDS: ipratropium/albuterol 3ml nebule IH SCH ×4 (07:00→20:21)
[2017-02-24 07:01] LABS: CHLORIDE 98 MMOL/L (99-107); GLUCOSE 94 MG/DL (70-104); POTASSIUM 3.8 MMOL/L (3.5-5.1); SODIUM 132 MMOL/L (135-145)
[2017-02-24 07:02] LABS: ALANINE AMINOTRANSFERASE 32 U/L (12-78); ALBUMIN 2.4 G/DL (3.4-5.0); ALBUMIN/GLOBULIN RATIO 0.6 (1.1-1.5); ALKALINE PHOSPHATASE 191 IU/L (46-116); ANION GAP 6 (8-16); ASPARTATE AMINO TRANSFERASE 57 U/L (10-37); BILIRUBIN,TOTAL 2.3 MG/DL (0.1-1.0); BLOOD UREA NITROGEN 12 MG/DL (7-18); BUN/CREATININE RATIO 11.8 (6.6-38.0); CALCIUM 8.2 MG/DL (8.5-10.1); CREATININE 1.02 MG/DL (0.40-0.90); TOTAL PROTEIN 6.1 G/DL (6.4-8.2); eGFR 56 ML/MIN
[2017-02-24] MEDS: fluticasone furoate 100MCG/puff inhaler IH SCH (07:17)
[2017-02-24] MEDS ORDERED: magnesium 2GM in 50ml NS 50 ML IV PRN (07:40)
[2017-02-24] MEDS ORDERED: MAGNESIUM 4 GM IN 100ML BAG IV PRN (07:50)
[2017-02-24] MEDS ORDERED: MAG PROTOCOL PO PRN (07:50)
[2017-02-24] MEDS: metoprolol succinate 25mg (24-HOUR) SR. Tablet PO SCH (08:00)
[2017-02-24] MEDS: nicotine 21mg patch - 24 hr TD SCH (08:00)
[2017-02-24 08:30] VITALS: BP 96/53
[2017-02-24] MEDS: loratadine 10mg tablet PO SCH (08:35)
[2017-02-24] MEDS: docusate sod 100mg capsule PO SCH ×2 (08:35→20:00)
[2017-02-24] MEDS: pantoprazole 40mg Tablet.DR PO SCH (08:35)
[2017-02-24] MEDS: aspirin 81mg tablet.DR PO SCH (08:37)
[2017-02-24] MEDS: vancomycin/NS 1 GM ADD-VANTAGE 250 ML IV SCH ×2 (08:37→20:00)
[2017-02-24] MEDS: heparin, porcine 5000 units/ml vial SQ SCH ×2 (08:38→20:00)
[2017-02-24] MEDS: lactobacillus rhamnosus 10,000 MMU CELLS/CAPSULE PO SCH (08:40)
[2017-02-24 10:00] VITALS: BP 96/58
[2017-02-24] MEDS: furosemide 10 MG/1 ML 10ml inj IV SCH ×2 (10:39→20:00)
[2017-02-24] MEDS: spironolactone 25 MG tablet PO SCH (10:39)
[2017-02-24] MEDS: MAGNESIUM 2 GRAMS IN 50ML BAG IV PRN (10:41)
[2017-02-24 18:00] VITALS: BP 87/58
[2017-02-24 21:00] VITALS: BP 98/62
[2017-02-24] MEDS: Insulin Detemir pen SQ SCH (21:00)
[2017-02-24] MEDS: temazepam 15mg capsule PO SCH (21:00)
[2017-02-24 22:00] VITALS: BP 110/71
[2017-02-25] MEDS: tetrahydrozoline 0.05% 15ml ophthalmic drops EACHEYE SCH ×4 (01:45→19:41)
[2017-02-25] MEDS: HYDROcodone/acetaminophen 10/325mg tab PO PRN ×2 (04:51→13:39)
[2017-02-25] MEDS: diphenhydrAMINE 25mg capsule PO PRN ×2 (04:51→13:39)
[2017-02-25 05:00] VITALS: BP 95/63
[2017-02-25 06:07] LABS: ALANINE AMINOTRANSFERASE 47 U/L (12-78); ALBUMIN 2.2 G/DL (3.4-5.0); ALBUMIN/GLOBULIN RATIO 0.6 (1.1-1.5); ALKALINE PHOSPHATASE 156 IU/L (46-116); ANION GAP 5 (8-16); ASPARTATE AMINO TRANSFERASE 63 U/L (10-37); BILIRUBIN,TOTAL 2.5 MG/DL (0.1-1.0); BLOOD UREA NITROGEN 12 MG/DL (7-18); CALCIUM 8.1 MG/DL (8.5-10.1); CHLORIDE 99 MMOL/L (99-107); CREATININE 1.33 MG/DL (0.40-0.90); GLUCOSE 121 MG/DL (70-104); MAGNESIUM 1.3 MG/DL (1.5-2.4); POTASSIUM 4.1 MMOL/L (3.5-5.1); SODIUM 132 MMOL/L (135-145); TOTAL CARBON DIOXIDE 27.9 MMOL/L (24-32); TOTAL PROTEIN 5.6 G/DL (6.4-8.2); eGFR 41 ML/MIN
[2017-02-25 06:08] LABS: HEMATOCRIT 29.5 % (35.0-45.0); HEMOGLOBIN 9.7 g/dl (12.0-16.0); MEAN CORPUSCULAR HEMOGLOBIN 32.2 PG (27.0-31.0); MEAN CORPUSCULAR VOLUME 97.6 FL (78-98); MEAN PLATELET VOLUME 8.5 FL (7.4-10.4); PLATELET COUNT 129 X10'3 (140-440); RED BLOOD COUNT 3.02 X10'6 (4.20-5.60); RED CELL DISTRIBUTION WIDTH 17.7 % (11.5-14.5); WHITE BLOOD COUNT 8.6 X10'3 (4.5-11.0)
[2017-02-25] MEDS: ipratropium/albuterol 3ml nebule IH SCH ×4 (06:54→19:33)
[2017-02-25] MEDS: fluticasone furoate 100MCG/puff inhaler IH SCH (06:55)
[2017-02-25 07:21] LABS: TOTAL CELLS COUNTED 100
[2017-02-25 07:23] LABS: ANISOCYTOSIS 2+; BURR CELLS 1+; HYPOCHROMASIA 1+; PLATELET ESTIMATE DECREASED; POLYCHROMASIA 1+; SMUDGE CELLS FEW; TARGET CELLS FEW
[2017-02-25 07:45] VITALS: BP 96/60
[2017-02-25] MEDS: LACTOBACILLUS RHAMNOSUS GG 15 billion unit sprinkle caps PO SCH (07:57)
[2017-02-25] MEDS: pantoprazole 40mg Tablet.DR PO SCH (07:57)
[2017-02-25] MEDS: furosemide 10 MG/1 ML 10ml inj IV SCH (07:57)
[2017-02-25] MEDS: vancomycin/NS 1 GM ADD-VANTAGE 250 ML IV SCH (07:58)
[2017-02-25] MEDS: docusate sod 100mg capsule PO SCH ×2 (07:59→19:32)
[2017-02-25] MEDS: loratadine 10mg tablet PO SCH (07:59)
[2017-02-25] MEDS: heparin, porcine 5000 units/ml vial SQ SCH ×2 (08:00→19:32)
[2017-02-25] MEDS: aspirin 81mg tablet.DR PO SCH (08:00)
[2017-02-25] MEDS: nicotine 21mg patch - 24 hr TD SCH (08:00)
[2017-02-25] MEDS: metoprolol succinate 25mg (24-HOUR) SR. Tablet PO SCH (08:00)
[2017-02-25] MEDS: spironolactone 25 MG tablet PO SCH (08:01)
[2017-02-25 10:00] VITALS: BP 103/67
[2017-02-25] MEDS ORDERED: magnesium oxide 400mg tablet PO ONE (11:00)
[2017-02-25] MEDS: magnesium oxide 400mg tablet PO SCH (17:03)
[2017-02-25 18:00] VITALS: BP 111/66
[2017-02-25] MEDS: furosemide 40mg/4ml inj IV SCH (19:32)
[2017-02-25] MEDS: temazepam 15mg capsule PO SCH (19:41)
[2017-02-25] MEDS: Insulin Detemir pen SQ SCH (19:42)
[2017-02-25 22:00] VITALS: BP 113/69
[2017-02-26] MEDS: HYDROcodone/acetaminophen 10/325mg tab PO PRN (01:04)
[2017-02-26] MEDS: diphenhydrAMINE 25mg capsule PO PRN (01:04)
[2017-02-26] MEDS: magnesium oxide 400mg tablet PO SCH ×2 (01:04→09:59)
[2017-02-26] MEDS: tetrahydrozoline 0.05% 15ml ophthalmic drops EACHEYE SCH ×2 (02:00→09:52)
[2017-02-26 05:00] VITALS: BP 91/65
[2017-02-26 06:39] LABS: MAGNESIUM 1.3 MG/DL (1.5-2.4); POTASSIUM 4.4 MMOL/L (3.5-5.1)
[2017-02-26] MEDS: ipratropium/albuterol 3ml nebule IH SCH (07:00)
[2017-02-26] MEDS: fluticasone furoate 100MCG/puff inhaler IH SCH (07:15)
[2017-02-26] MEDS: nicotine 21mg patch - 24 hr TD SCH (09:42)
[2017-02-26] MEDS: docusate sod 100mg capsule PO SCH (09:42)
[2017-02-26] MEDS: LACTOBACILLUS RHAMNOSUS GG 15 billion unit sprinkle caps PO SCH (09:47)
[2017-02-26] MEDS: pantoprazole 40mg Tablet.DR PO SCH (09:47)
[2017-02-26] MEDS ORDERED: ipratropium/albuterol 3ml nebule IH PRN (09:50)
[2017-02-26] MEDS: furosemide 40mg/4ml inj IV SCH (09:58)
[2017-02-26] MEDS: loratadine 10mg tablet PO SCH (09:58)
[2017-02-26] MEDS: aspirin 81mg tablet.DR PO SCH (09:58)
[2017-02-26] MEDS: heparin, porcine 5000 units/ml vial SQ SCH (09:59)
[2017-02-26] MEDS: metoprolol succinate 25mg (24-HOUR) SR. Tablet PO SCH (09:59)
[2017-02-26] MEDS: spironolactone 25 MG tablet PO SCH (09:59)
[2017-02-26 10:00] VITALS: BP 109/69
[2017-02-26] MEDS: MAGNESIUM 2 GRAMS IN 50ML BAG IV PRN (10:08)
[2017-02-26] MEDS ORDERED: MAGN400T6 PO (10:13)
== END 2017-02-26 12:35 | disposition home health service (06) | DRG 637 ==
LOC: ER 15:07 → ED HOLD 21:13 → ORTHO 4S 22:25
PROVIDERS: ADMIT Family Medicine; ATTEND Family Medicine
DX: E11.65 Type 2 diabetes mellitus with hyperglycemia (principal); I50.33 Acute on chronic diastolic (congestive) heart failure; D69.2 Other nonthrombocytopenic purpura; D69.6 Thrombocytopenia, unspecified; E83.42 Hypomagnesemia; E83.51 Hypocalcemia; R18.8 Other ascites; E87.1 Hypo-osmolality and hyponatremia; I11.0 Hypertensive heart disease with heart failure; K74.60 Unspecified cirrhosis of liver; J45.909 Unspecified asthma, uncomplicated; D64.9 Anemia, unspecified; G47.33 Obstructive sleep apnea (adult) (pediatric); R21 Rash and other nonspecific skin eruption; B19.20 Unspecified viral hepatitis C without hepatic coma; E03.9 Hypothyroidism, unspecified; F17.210 Nicotine dependence, cigarettes, uncomplicated; Z88.6 Allergy status to analgesic agent; Z88.2 Allergy status to sulfonamides; Z90.710 Acquired absence of both cervix and uterus; Z91.19 Patient's noncompliance with other medical treatment and regimen; Z87.440 Personal history of urinary (tract) infections; Z83.3 Family history of diabetes mellitus; Z82.49 Family history of ischemic heart disease and other diseases of the circulatory system; Z71.6 Tobacco abuse counseling
CPT/HCPCS: 36415; 76705; 80053; 80202; 81003; 82140; 82948; 83605; 83690; 83735; 83880; 84100; 84132; 84145; 85025; 87040; 87070; 94640; 94760; 96365; 96366; 96368; 97116; 97161; 97530; 99285; J1644; J1940; J2543; J3370; J3475; J7030; Q0163

== ENCOUNTER 2018-09-05 01:18 | Emergency (ER) | payer OTHER ==
[~2018-09-05] VITALS: Ht 152.4 cm; Wt 90.0 kg
[~2018-09-05 01:18] MED LIST changes: -DEC4T PO; +FURO-150 PO; -FURO20TA4 PO; -IPRA3AMP IH; +IPRA3AMP31 IH; +MAGN400T6 PO; -MAGN500C16 PO; -POTA10TA19 PO; -SPIR50TA3 PO; +SPIR50TA5 PO
--- NOTE | 2018-09-05 01:36 | NUR ---
pt cici can be reached at home [phone] or cellphone [phone]
[2018-09-05] MEDS ORDERED: normal saline 1000ML IV soln IVB ONE (01:45)
[2018-09-05] MEDS ORDERED: ondansetron/PF 4mg/2ml inj IV ONE (01:45)
[2018-09-05 01:52] LABS: BASOPHILS # (AUTO) 0.1 X10'3 (0-0.2); BASOPHILS % (AUTO) 1.1 % (0-1); EOSINOPHILS # (AUTO) 0.4 X10'3 (0-0.9); EOSINOPHILS % (AUTO) 3.3 % (0-6); HEMATOCRIT 41.1 % (35.0-45.0); HEMOGLOBIN 13.8 g/dl (12.0-16.0); LYMPHOCYTES # (AUTO) 3.6 X10'3 (1.1-4.8); MEAN CORPUSCULAR HEMOGLOBIN 32.1 PG (27.0-31.0); MEAN CORPUSCULAR HGB CONC 33.5 g/dL (33.0-36.5); MEAN CORPUSCULAR VOLUME 95.9 FL (78-98); MEAN PLATELET VOLUME 7.6 FL (7.4-10.4); MONOCYTES # (AUTO) 1.6 X10'3 (0-0.9); MONOCYTES % (AUTO) 14.5 % (2-12); NEUTROPHILS # (AUTO) 5.6 X10'3 (1.8-7.7); NEUTROPHILS % (AUTO) 49.1 % (42-75); PLATELET COUNT 284 X10'3 (140-440); RED BLOOD COUNT 4.29 X10'6 (4.20-5.60); RED CELL DISTRIBUTION WIDTH 13.6 % (11.5-14.5); WHITE BLOOD COUNT 11.3 X10'3 (4.5-11.0)
[2018-09-05 02:01] LABS: ALANINE AMINOTRANSFERASE 27 U/L (12-78); ALBUMIN 3.3 G/DL (3.4-5.0); ALBUMIN/GLOBULIN RATIO 0.7 (1.1-1.5); ALKALINE PHOSPHATASE 240 IU/L (46-116); ANION GAP 14 (8-16); BILIRUBIN,TOTAL 0.4 MG/DL (0.1-1.0); BLOOD UREA NITROGEN 9 MG/DL (7-18); BUN/CREATININE RATIO 10.5 (6.6-38.0); CALCIUM 8.3 MG/DL (8.5-10.1); CHLORIDE 93 MMOL/L (99-107); CREATININE 0.86 MG/DL (0.40-0.90); GLUCOSE 140 MG/DL (70-104); SODIUM 129 MMOL/L (135-145); TOTAL CARBON DIOXIDE 21.8 MMOL/L (24-32); eGFR 68 ML/MIN
--- NOTE | 2018-09-05 02:05 | NUR ---
PT TO CT
--- NOTE | 2018-09-05 02:13 | NUR ---
PT BACK FROM CT - IV FLUIDS INFUSING. WILL OBTAIN ZOFRAN AND MEDICATE PT BILLY
[2018-09-05 02:23] LABS: ASPARTATE AMINO TRANSFERASE 45 U/L (10-37); POTASSIUM 3.3 MMOL/L (3.5-5.1)
[2018-09-05 02:27] LABS: ETHANOL 0.301 GM/DL (0.0-0.010)
[2018-09-05 02:29] LABS: URINE AMPHETAMINE SCREEN NEGATIVE (Neg); URINE BARBITUATE SCREEN NEGATIVE (Neg); URINE BENZODIAZEPINES SCREEN NEGATIVE (Neg); URINE CANNABINOID SCREEN NEGATIVE (Neg); URINE COCAINE SCREEN NEGATIVE (Neg); URINE METHADONE SCREEN NEGATIVE (Neg); URINE OPIATE SCREEN NEGATIVE (Neg); URINE PHENCYCLIDINE SCREEN NEGATIVE (Neg)
--- NOTE | 2018-09-05 02:41 | NUR ---
PT CT NEGATIVE. C-SPINE REMOVED. PHONED
--- NOTE | 2018-09-05 02:41 | NUR ---
I CALLED AT PTS REQUEST TO UPDATE HIM ON HER STATUS. I ADVISED HIM THAT HE IS WELCOME TO COME DOWN OR ELSE I CAN CALL HIM WHEN SHE IS READY FOR D\C. PT REQUESTS THAT I CALL HIM AT TIME OF D\C SO THAT HE CAN GET SOME REST.
[2018-09-05] MEDS ORDERED: LIDOcaine 1% w/epiNEPHrine 1:200,000 30ml vial IM ONE (02:50)
--- NOTE | 2018-09-05 02:54 | NUR ---
PT UP TO COMMODE WITH ASSISTANCE
--- NOTE | 2018-09-05 03:35 | NUR ---
WOUND IRRIGATED, MD AWARE PT IS READY FOR SUTURE
--- NOTE | 2018-09-05 04:01 | NUR ---
WOUND HAS BEEN SUTURED. CALLED TO PICK-UP PATIENT
--- NOTE | 2018-09-05 04:49 | NUR ---
Haily patrick in [facility] - 09/05/18 at 0449 by SHEELA PT BACK FROM CT
[2018-09-05 05:01] VITALS: BP 133/75
== END 2018-09-05 05:03 | disposition home or self-care (01) ==
LOC: ER 01:19
DX: S01.81XA Laceration without foreign body of other part of head, initial encounter (principal); F10.129 Alcohol abuse with intoxication, unspecified; I10 Essential (primary) hypertension; J45.909 Unspecified asthma, uncomplicated; I25.10 Atherosclerotic heart disease of native coronary artery without angina pectoris; G47.30 Sleep apnea, unspecified; Z88.8 Allergy status to other drugs, medicaments and biological substances; Z88.2 Allergy status to sulfonamides; Z79.82 Long term (current) use of aspirin; Z79.899 Other long term (current) drug therapy; Z90.710 Acquired absence of both cervix and uterus; Z98.890 Other specified postprocedural states; W18.39XA Other fall on same level, initial encounter; Y93.89 Activity, other specified; Y92.091 Bathroom in other non-institutional residence as the place of occurrence of the external cause; Y99.8 Other external cause status
CPT/HCPCS: 12013; 36415; 70450; 70490; 71045; 80053; 80305; 80320; 85025; 96374; 99284; J2405; J7030